=== PATIENT | male | born 1990 | race Caucasian/White ===

== ENCOUNTER 2023-05-16 14:04 | Outpatient (AMB) | payer BC, SELFPAY ==
--- NOTE | 2023-05-16 14:07 | MHC.PC.OV ---
Vital Signs 05/16/23 14:08 Height 6 ft Weight 193 lb 4 oz BMI 26.2 BP 134/82 Blood Pressure Location Lt brachial Position Sitting Pulse 86 Pulse Source Pulse Oximeter Pulse Oximetry (%) 99 Oxygen Delivery Method Room Air Intake Visit Reasons: est care/ IBS Pattern Hanger Required: No Accompanied by: Self / Same As Patient Allergies No Known Allergies Allergy (Verified 05/16/23 15:32) Medication List - Last Reconciled 05/16/23 by Shaq Dorsey MD dextroamphetamine-amphetamine 25 mg ER (Adderall XR) 25 mg PO BID Tobacco use date assessed: 05/16/23 Dental Screening Dental Screen Date: 05/16/23 Did you have a dental visit in the last 12 months?: Yes Did you have a dental problem in the last 6 months where you did not have access to dental care?: No Was dental information given to patient?: Patient has dentist HPI est care/ IBS HPI Details Patient comes in today to establish care - is a new patient to the practice States that he has not had a PCP since he was last with his inhalation therapy teacher when he was 15 y/o He is currently on Adderall XR that is being prescribed and managed by psychiatry Dr. Alvarez) in [place], [place] - states that he sees Dr. Alavrez via virtual visits every 3 months Relates (+) loose stools and frequent bowel movements daily, sometimes up to 6 to 7 episodes a day for the past 6 months or so; states that he's had occasional bouts of incontinence Is concerned that he may have IBS as he also notes (+) recurrent cramping pain in his stomach at times although these are not relieved even after he moves his bowels Patient denies any fever, headaches or dizziness Denies any chest pains, no SOB No nausea/vomiting and no change in bowel habits noted He denies any acute urinary symptoms PFSH Medical History (Updated 05/21/23 @ 02:04 by Shaq Dorsey MD) Overweight (BMI 25.0-29.9) Attention deficit disorder (ADD) Surgical History (Updated 05/16/23 @ 15:38 by Shaq Dorsey MD) S/P arthroscopy of right shoulder Hx of arthroscopic knee surgery Family History (Updated 05/16/23 @ 15:39 by Shaq Dorsey MD) Father Hemochromatosis Social History (Updated 05/16/23 @ 15:39 by Shaq Dorsey MD) Housing: House Alcohol intake: current Alcohol intake frequency: holidays/special occasions only Patient Tobacco Use Status: Never used Tobacco e-Cigarette/Vaping Use: Never Used service: No Current occupational status: employed Cognitive needs: No Hearing needs: No Vision needs: No Questionnaire PHQ-9 Over the last 2 weeks, how often have you been bothered by any of the following problems? 1. Little interest or pleasure in doing things: not at all 2. Feeling down, depressed, or hopeless: not at all 3. Trouble falling or staying asleep, or sleeping too much: not at all 4. Feeling tired or having little energy: not at all 5. Poor appetite or overeating: not at all 6. Feeling bad about yourself - or that you are a failure or have let yourself or your family down: not at all 7. Trouble concentrating on things, such as reading the newspaper or watching television: not at all 8. Moving or speaking so slowly that other people could have noticed. Or the opposite - being so fidgety or restless that you have been moving around a lot more than usual: not at all 9. Thoughts that you would be better off or of hurting yourself in some way: not at all Total score: 0 Depression Screening Interpretation: Negative Depression Screening Done: Yes 00294 - PHQ-9 Billing: Yes Source: Developed by Drs. Giles Vaz, Ioana Delgado, Sunny Cobian and colleagues, with an educational zahira from [employer]. Thrive Questionnaire Date Thrive assessed: 05/16/23 I am a: Patient What is your living situation today?: I have a steady place to live Within the past 12 months, did the food you bought not last and you didn't have the money to get more?: Never true Within the past 12 months, did you worry whether your food would run out before you got money to buy more?: Never true Do you have trouble paying for medicines?: No Do you have trouble getting transportation to medical appointments?: No Do you have trouble paying your heating and electricity bill?: No Do you have trouble taking care of your child, family member or friend?: No Do you have trouble with day-to-day activities such as bathing, preparing meals, shopping, managing finances, etc.?: No Are you currently unemployed and looking for a job?: No Are you interested in more education?: No Please select the resources that you would like help with: None Currently or been in a relationship where the following occur: no concerns reported AUDIT C Alcohol Use Questionnaire (AUDIT-C) 1. How often do you have a drink containing alcohol?: 2-4 times a month 2. How many drinks containing alcohol do you have on a typical day when you are drinking?: 3 or 4 3. How often do you have six or more drinks on one occasion?: Never Total Score: 3 Score Reviewed/Action Taken: Yes CASSIDY-7 AMB Questionnaire CASSIDY-7 Date CASSIDY - 7 assessed: 05/16/23 Feeling nervous, anxious, or on edge: 0 = Not at all Not being able to stop or control worryin = Not at all Worrying too much about different things: 0 = Not at all Trouble relaxin = Not at all Being so restless that it is hard to sit still: 0 = Not at all Becoming easily annoyed or irritable: 0 = Not at all Feeling afraid as if something awful might happen: 0 = Not at all Total CASSIDY-7 score (0-4 normal; 5-9 mild; 10-14 moderate; 15-21 severe): 0 Source: Developed by Drs. Giles Vaz, Ioana Delgado, Sunny Cobina and colleagues, with an educational zahira from [employer]. Review of Systems Const Denies chills, Denies fatigue, Denies fever(s), Denies headache(s), Denies malaise and Denies weakness Eyes Denies blurry vision, Denies change in vision, Denies irritation and Denies itchy eyes ENT Denies dysphagia, Denies dizziness, Denies otalgia, Denies headache(s), Denies nasal congestion, Denies neck pain, Denies odynophagia and Denies sore throat Card Denies chest pain, Denies rapid heart rate, Denies irregular heart rhythm, Denies palpitations and Denies dyspnea Resp Denies chest congestion, Denies cough, Denies dyspnea and Denies wheezing GI Reports abdominal pain (recurrent abdominal cramping), Denies bloating, Denies constipation, Denies dysphagia, Denies heartburn, Reports diarrhea (on and off), Reports loose stools (on and off), Denies nausea, Denies odynophagia and Denies vomiting Denies hematuria, Denies difficulty urinating, Denies dysuria, Denies urinary frequency and Denies urinary urgency Musc Denies back pain, Denies arthralgias, Denies joint swelling, Denies muscle weakness and Denies neck pain Skin/Breast Denies change in pigmentation, Denies lesions, Denies rash and Denies unusual bruising Neuro Denies dizziness, Denies headache(s), Denies paresthesias and Denies weakness Psych Denies anxiety, Denies depression and Reports difficulty concentrating (is currently on Rx for ADD) Endo Denies fatigue and Denies palpitations Aller/Immun Denies itchy eyes and Denies wheezing Physical exam (Primary Care) Vital Signs: Last Vital Signs Pulse 86 05/16/23 14:08 BP 134/82 05/16/23 14:08 Pulse Ox 99 05/16/23 14:08 Oxygen Delivery Method Room Air 05/16/23 14:08 BMI result Body Mass Index 26.2 Tobacco/Smoking Status: Tobacco use Status Tobacco use date assessed 05/16/23 05/16/23 14:14 Patient Tobacco Use Status Never used Tobacco 05/16/23 15:39 e-Cigarette/Vaping Use Never Used 05/16/23 15:39 PHQ-9: PHQ-9 Score PHQ-9: Total score 0 05/17/23 05:42 Depression Screening Interpretation: Negative Thrive Assessment: Date of Thrive Assessment Date Thrive assessed 05/16/23 05/16/23 14:14 Currently or been in a relationship where the following occur: no concerns reported Const General: no acute distress, alert and awake Orientation/consciousness: patient oriented x3 HENMT Head: Yes normocephalic and Yes atraumatic Ears: external ears normal, TM's normal bilaterally and EAC's normal General nose exam: No nasal discharge present Face and sinus: Yes normal facial exam and Yes sinuses nontender Teeth and gingiva: dentition normal Throat: Yes posterior oropharynx normal and Yes tonsils normal (no TP congestion) Eyes Eyelids: Yes eyelids normal Conjunctivae: conjunctivae normal Pupils: Equal, round and reactive pupils present EOM: EOMs intact bilaterally Neck Neck: Yes no lymphadenopathy and Yes supple Thyroid: Thyroid normal Resp Auscultation: clear to auscultation bilaterally, no rales and no wheezes Cardio Rate: regular rate Rhythm: regular rhythm Heart sounds: no murmurs GI Palpation (GI): Soft to palpation, nontender and No hepatosplenomegaly present Auscultation: normal bowel sounds General: Yes no CVA tenderness Back/Spine/Pelvis Back: no CVA tenderness Thoracic/Lumbar Spine: thoracic and lumbar spine normal to inspection Skin Lesions: no lesions Rashes: no rashes Neuro General: patient oriented x3, moves all extremities, no focal motor deficits and CN's II-XI intact bilaterally Cranial nerves: Yes Equal, round and reactive pupils present Cognition (Neuro): normal cognition Gait exam (Neuro): Normal gait present Extrem General: Yes no clubbing, cyanosis or edema Assessment and Plan Assessment & Plan (1) Annual physical exam: Code(s): Z00.00 - Encounter for general adult medical examination without abnormal findings Plan: Check labs (2) Intermittent diarrhea: Code(s): R19.7 - Diarrhea, unspecified Plan: Will send patient for some labs for further evaluation, including tests to screen/evaluate him for celiac disease (3) Abdominal cramping: Code(s): R10.9 - Unspecified abdominal pain Plan: He is advised that if his labs are unrevealing and if his symptoms persist, will consider referring him to GI for further evaluation and management (4) Attention deficit disorder (ADD): Code(s): F98.8 - Other specified behavioral and emotional disorders with onset usually occurring in childhood and adolescence Qualifiers: Hyperactivity presence: absent Qualified Code(s): F98.8 - Other specified behavioral and emotional disorders with onset usually occurring in childhood and adolescence Plan: Continue Adderall XR 25 mg BID Follow up with psychiatry as scheduled - is being seen by Dr. Alvarez out of [place], [place] via virtual visits (5) Overweight (BMI 25.0-29.9): Code(s): E66.3 - Overweight Plan: Discussed diet/exercise as tolerated/lose weight Plan Follow up in 4 months Orders: Orders Comprehensive Met. Panel 05/16/23 R10.9 - Unspecified abdominal pain, R19.7 - Diarrhea, unspecified, Z00.00 - Encounter for general adult medical examination without abnormal findings TSH reflex Free T4 05/16/23 R19.7 - Diarrhea, unspecified, Z00.00 - Encounter for general adult medical examination without abnormal findings UA CC w/rflx Micro + Cult 05/18/23 R30.0 - Dysuria, Z00.00 - Encounter for general adult medical examination without abnormal findings Vitamin D 25-OH Total 05/16/23 E55.9 - Vitamin D deficiency, unspecified, R19.7 - Diarrhea, unspecified, Z00.00 - Encounter for general adult medical examination without abnormal findings Endomysial IgA rflx Titer 05/16/23 R10.9 - Unspecified abdominal pain, R19.7 - Diarrhea, unspecified Immunoglobulin A 05/16/23 R10.9 - Unspecified abdominal pain, R19.7 - Diarrhea, unspecified Transferrin 05/16/23 Z83.49 - Family history of other endocrine, nutritional and metabolic diseases Complete Blood Count Auto Diff 05/16/23 I10 - Essential (primary) hypertension, R10.9 - Unspecified abdominal pain, R19.7 - Diarrhea, unspecified, Z00.00 - Encounter for general adult medical examination without abnormal findings Cholesterol 05/16/23 Z00.00 - Encounter for general adult medical examination without abnormal findings Vitamin B12 and Folate 05/16/23 E53.8 - Deficiency of other specified B group vitamins, R19.7 - Diarrhea, unspecified, Z00.00 - Encounter for general adult medical examination without abnormal findings Transglutaminase Ab IgG 05/16/23 R10.9 - Unspecified abdominal pain, R19.7 - Diarrhea, unspecified Ferritin 05/16/23 Z83.49 - Family history of other endocrine, nutritional and metabolic diseases Erythrocyte Sedimentation Rate 05/16/23 R10.9 - Unspecified abdominal pain, R19.7 - Diarrhea, unspecified Coding Level of Care Code Est Pt Prev Care 18-39y(91186) Diagnoses Annual physical exam Z00.00 Intermittent diarrhea R19.7 Abdominal cramping R10.9 Attention deficit disorder (ADD) without hyperactivity F98.8 Hyperactivity presence: absent Overweight (BMI 25.0-29.9) E66.3
[2023-05-16 14:08] VITALS: BP 134/82; PULSE 86; O2SAT 99; BMI 26.2
== END 2023-05-16 15:54 | disposition home or self-care (01) ==
PROVIDERS: PCP Physician Assistant; Visit Provider Internal Medicine
DX: Z00.00 Encounter for general adult medical examination without abnormal findings (principal); R19.7 Diarrhea, unspecified; R10.9 Unspecified abdominal pain; F98.8 Other specified behavioral and emotional disorders with onset usually occurring in childhood and adolescence; E66.3 Overweight
CPT/HCPCS: 99395

== ENCOUNTER 2023-05-16 16:05 | Outpatient (REF) | payer BC, SELFPAY ==
[2023-05-16 16:26] LABS: MANUAL DIFF FLAG NO
[2023-05-16 17:37] LABS: Basophils Percent Auto 0.5 % (0-2); Eosinophils Absolute Auto 0.2 X10*3/uL (0.0-0.4); Eosinophils Percent Auto 2.8 % (0-4); Hematocrit 45.6 % (42.0-52.0); Hemoglobin 15.6 g/dl (14.0-18.0); Imm Gran Abs Auto 0.02 X10*3/uL (0.00-0.03); Imm Gran Pct Auto 0.4 % (0.0-0.4); Lymphocytes Percent Auto 18.2 % (20-40); Mean Corpuscular HGB Conc 34.2 g/dl (31.0-36.0); Mean Corpuscular Hemoglobin 30.3 pg (27.0-33.0); Mean Corpuscular Volume 88.5 fL (80.0-98.0); Mean Platelet Volume 10.6 fL (9.4-12.4); Monocytes Absolute Auto 0.6 X10*3/uL (0.1-1.2); Monocytes Percent Auto 10.4 % (2-11); Neutrophils Absolute Auto 3.8 x10*3/uL (2.0-8.3); Neutrophils Percent Auto 67.7 % (45-73); Platelet Count 251 X10*3/uL (160-400); Red Blood Count 5.15 X10*6/uL (4.60-5.80); Red Cell Distribution Width 11.9 % (11.0-16.0); White Blood Count 5.7 X10*3/uL (4.8-10.8)
[2023-05-16 17:55] LABS: Alanine Aminotransferase 17 U/L (0-40); Albumin Level 4.9 g/dL (3.5-5.0); Alkaline Phosphatase 61 U/L (39-117); Anion Gap 15 (12-20); Aspartate Amino Transferase 19 U/L (5-37); Bilirubin Total 0.7 mg/dL (0.0-1.0); Blood Urea Nitrogen 10 mg/dL (9-16); Carbon Dioxide 29 mmol/L (22-29); Chloride 102 mmol/L (96-108); Cholesterol 167 mg/dL (<200); Estimated Glomerular Filt Rate > 60; Glucose Random 86 mg/dL (60-115); Potassium 3.6 mmol/L (3.3-5.1); Sodium 142 mmol/L (135-145); Total Protein 8.2 g/dL (6.5-8.0)
[2023-05-16 18:12] LABS: Ferritin 123 ng/mL (20-250); TSH reflex Free T4 0.71 uIU/mL (0.32-4.0); Vitamin D 25-OH Total 39.9 ng/mL (>30)
[2023-05-16 18:22] LABS: Folate 14.7 ng/mL (> or = 4.0); Vitamin B12 567 pg/mL (200-900)
[2023-05-16 18:34] LABS: Erythrocyte Sedimentation Rate 2 MM/HR (0-15)
[2023-05-18 16:59] LABS: Immunoglobulin A 239 mg/dL (47-310); Transferrin 267 mg/dL (188-341)
[2023-05-21 12:28] LABS: Endomysial IgA Antibody Negative (Negative)
[2023-05-23 07:38] LABS: Transglutaminase Ab IgG <1.0 U/mL
== END 2023-05-16 16:06 | disposition home or self-care (01) ==
LOC: HO.LAB 16:05
PROVIDERS: PCP Internal Medicine; Visit Provider Internal Medicine
DX: Z00.00 Encounter for general adult medical examination without abnormal findings (principal); R10.9 Unspecified abdominal pain; E55.9 Vitamin D deficiency, unspecified; E53.8 Deficiency of other specified B group vitamins; I10 Essential (primary) hypertension; Z83.49 Family history of other endocrine, nutritional and metabolic diseases; K52.9 Noninfective gastroenteritis and colitis, unspecified; R63.4 Abnormal weight loss; K90.0 Celiac disease
CPT/HCPCS: 36415; 80053; 82306; 82465; 82607; 82728; 82746; 82784; 84443; 84466; 85025; 85652; 86231; 86364

== ENCOUNTER 2023-05-18 08:29 | Outpatient (REF) | payer BC, SELFPAY ==
[2023-05-18 08:40] LABS: Appearance Urine Clear; Color Urine Yellow; Glucose Urine UA Negative (Negative); Leukocyte Esterase Urine Negative (Negative); Nitrite Urine Negative (Negative); PH 5.5 (5.0-9.0); Specific Gravity - Urine 1.025 (1.005-1.025); Urine Blood Negative (Negative); Urine Ketones Negative (Negative); Urine Protein Negative (Neg-Trace)
== END 2023-05-18 08:30 | disposition home or self-care (01) ==
LOC: HO.LNP 08:29
PROVIDERS: Visit Provider Internal Medicine
DX: Z00.00 Encounter for general adult medical examination without abnormal findings (principal); R30.0 Dysuria
CPT/HCPCS: 81003

== ENCOUNTER 2023-06-13 12:43 | Outpatient (AMB) | payer BC, SELFPAY ==
--- NOTE | 2023-06-13 12:47 | A.OFFVIS_ITS ---
Intake Vital Signs 06/13/23 12:48 Height 6 ft Weight 190 lb BMI 25.8 BP 120/72 Blood Pressure Location Lt brachial Position Sitting Pulse 92 Intake Visit Reasons: abdominal pain and diarrhea Intake Note: New consult for abdominal pain and diarrhea. Patient cc: bilateral abdominal pain with some bloating,and bloody diarrhea. Denies any other GI issues. Rn Utilization Management Um Required: No Accompanied by: Self / Same As Patient Allergies No Known Allergies Allergy (Verified 06/13/23 12:46) Medication List - Last Reconciled 06/13/23 by Eleni Ayala PA-C dextroamphetamine-amphetamine 25 mg ER (Adderall XR) 25 mg PO BID HPI HPI Comments History of Present Illness Details 33-year-old male referred with chronic d iarrhea and abdominal bloating For the past 6 months- he has been having about 15 loose, sand like stool-noting blood in the stool- seems bright red to dark red-belly cramping-no new new medications-no traveling-no sick contacts Appetite is good No cardiac or respiratory issues No nausea, vomiting, he hematemesis, 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 WBC, there is no anemia, celiac markers are negativ e, TSH is normal [facility] Medical History Overweight (BMI 25.0-29.9) Attention deficit disorder (ADD) Surgical History S/P arthroscopy of right shoulder Hx of arthroscopic knee surgery Family History Father Hemochromatosis Social History (Updated 06/13/23 @ 13:09 by Eleni Ayala PA-C) Household Members Other:: , 2 young children Housing: House Alcohol intake: current Alcohol intake frequency: holidays/special occasions only Patient Tobacco Use Status: Never used Tobacco e-Cigarette/Vaping Use: Never Used service: No Current occupational status: employed Cognitive needs: No Hearing needs: No Vision needs: No Review of Systems Const All systems reviewed & are unremarkable except as noted in HPI and below ENT Reports no additional complaints Card Denies chest pain and Denies dyspnea Resp Denies dyspnea GI Denies abdominal pain, Reports bloating, Reports hematochezia, Reports GI cramping, Reports heartburn and Reports diarrhea Musc Denies back pain Physical Exam Vital Signs: Last Vital Signs Pulse 92 06/13/23 12:48 BP 120/72 06/13/23 12:48 BMI result Body Mass Index 25.8 Const General: cooperative, healthy appearing, comfortable and no acute distress Orientation/consciousness: patient oriented x3 Limitations: no limitations Eyes Sclerae: sclerae normal Resp Effort & Inspection: normal respiratory effort and able to speak in complete sentences Auscultation: clear to auscultation bilaterally, no rales, no rhonchi and no wheezes Cardio Rate: regular rate Rhythm: regular rhythm Heart sounds: S1 normal heart sound present and S2 normal heart sound present GI Palpation (GI): Soft to palpation and nontender Auscultation: normal bowel sounds Skin General skin exam: no rashes or lesions noted Neuro General: patient oriented x3 Extrem General: Yes full ROM Psych Appearance: grossly normal and well kempt Mental Status: mental status grossly normal Speech and movement: Normal speech and movement present and Clear speech present Attitude: cooperative Thought process: Normal thought process present Thought content: Normal thought content present Insight: Good insight present (Psych) Judgement: Good judgement present (Psych) Results Reviewed Results Reviewed: Normal TSH Celiac markers negative Assessment & Plan Assessment & Plan (1) Abdominal cramping: Comment: Will likely need EGD colo rule IBD Code(s): R10.9 - Unspecified abdominal pain Plan: Will get stool studies, update blood work (2) Intermittent diarrhea: Comment: diarrhea seems more consistent, abdominal cramping blood noted intermit-BRBR Code(s): R19.7 - Diarrhea, unspecified Plan: EGD colo rule out IBD Plan stool Dicyclomine hydrocortisone Niraj phillip EGD/ colon Orders: Orders GI Panel 06/15/23 R19.7 - Diarrhea, unspecified Giardia Ag Stool EIA 06/15/23 R19.7 - Diarrhea, unspecified H pylori Ag Stool 06/15/23 A04.8 - Other specified bacterial intestinal infections Calprotectin, Fecal 06/15/23 R19.7 - Diarrhea, unspecified CDiff Gene PCR 06/15/23 R19.7 - Diarrhea, unspecified Medications: New dicyclomine 10 mg PO TID 30 days PRN 90 caps 0RF abdominal pain hydrocortisone 2.5% (Proctosol HC) 1 appl WA BEDTIME PRN 30 grams 3RF hemorrhoids Patient Instructions: stool studies rule out infectious cause Dicyclomine 10 mg-he will begin once daily may increases as prescribed if knee hydrocortisone cream EGD/ colon if stool studies are negative Discussed procedure, rare risks Coding Level of Care Code New Pt Level 4 (66308) Diagnoses Abdominal cramping R10.9 Intermittent diarrhea R19.7 Time Spent (min) 40
[2023-06-13 12:48] VITALS: BP 120/72; PULSE 92; BMI 25.8
== END 2023-06-13 14:43 | disposition home or self-care (01) ==
PROVIDERS: PCP Internal Medicine; Visit Provider Physician Assistant
DX: R10.9 Unspecified abdominal pain (principal); R19.7 Diarrhea, unspecified
CPT/HCPCS: 99204

== ENCOUNTER 2023-06-13 12:43 | Outpatient (REF) | payer BC, SELFPAY | END 2023-06-13 12:44 | disposition home or self-care (01) | LOC: HO.LAB 12:43 | PROVIDERS: PCP Internal Medicine; Visit Provider Physician Assistant | DX: Z13.89 Encounter for screening for other disorder (principal) ==

== ENCOUNTER 2023-06-15 08:55 | Outpatient (REF) | payer BC, SELFPAY ==
[2023-06-15 11:51] LABS: CDiff Gene PCR NEGATIVE (Negative)
[2023-06-15 12:48] LABS: Adenovirus F 40/41 Not Detected (Not Detect.); Astrovirus Not Detected (Not Detect.); Campylobacter Not Detected (Not Detect.); Cryptosporidium Not Detected (Not Detect.); Cyclospora cayetanensis Not Detected (Not Detect.); E. coli EAEC Not Detected (Not Detect.); E. coli EPEC Not Detected (Not Detect.); E. coli ETEC Not Detected (Not Detect.); E. coli STEC Not Detected (Not Detect.); Entamoeba histolytica Not Detected (Not Detect.); Giardia lamblia Not Detected (Not Detect.); Norovirus GI/GII Not Detected (Not Detect.); Plesiomonas shigelloides Not Detected (Not Detect.); Rotavirus A Not Detected (Not Detect.); Salmonella Not Detected (Not Detect.); Sapovirus Not Detected (Not Detect.); Shigella sp./EIEC Not Detected (Not Detect.); Vibrio Not Detected (Not Detect.); Vibrio Cholerae Not Detected (Not Detect.); Yersinia enterocolitica Not Detected (Not Detect.)
[2023-06-21 16:53] LABS: Calprotectin, Fecal 1080 mcg/g
== END 2023-06-15 08:56 | disposition home or self-care (01) ==
LOC: HO.LNP 08:55
PROVIDERS: Visit Provider Physician Assistant
DX: A04.8 Other specified bacterial intestinal infections (principal); R19.7 Diarrhea, unspecified
CPT/HCPCS: 83993; 87329; 87338; 87493; 87507

== ENCOUNTER 2023-07-06 11:28 | Day surgery (SDC) | payer BC, SELFPAY ==
--- NOTE | 2023-07-04 10:36 | P.CONAN_ITS ---
Documented by User: Shanta Driver NP 07/04/23 10:38 HPI - Anesthesia Eval Consult details Narrative: 33yo M for Upper Endoscopy and Colonoscopy [facility] Active Problems Active Problems: All Active Problems (Updated 06/19/23 @ 12:15 by Eleni Ayala PA-C) Overweight (BMI 25.0-29.9) (Acute) Abdominal cramping (Acute) Intermittent diarrhea (Acute) Annual physical exam (Acute) Attention deficit disorder (ADD) (Acute) Past Medical History Medical History Overweight (BMI 25.0-29.9) Attention deficit disorder (ADD) Family History Family History Father Hemochromatosis Surgical History Surgical History S/P arthroscopy of right shoulder Hx of arthroscopic knee surgery Social History Social History Household Members Other:: , 2 young children Housing: House Alcohol intake: current Alcohol intake frequency: holidays/special occasions only Patient Tobacco Use Status: Never used Tobacco e-Cigarette/Vaping Use: Never Used Are you DNR?: No Advance Directives: No Advance Directives Information Provided: Yes Recently lost weight without trying: No service: No Current occupational status: employed Cognitive needs: No Hearing needs: No Vision needs: No Meds Allergies Allergy/AdvReac Type Severity Reaction Status Date / Time No Known Allergies Allergy Verified 06/13/23 12:46 Home Medications Medication Instructions Recorded Confirmed Last Taken Type dextroamphetamine-amphetamine ER 25 mg PO BID 05/16/23 05/16/23 07/05/23 History 25 mg 24hr capsule,extend release (Adderall XR) Exam Pertinent Lab Results Pertinent Lab Results: Laboratory Tests 05/16/23 16:24 WBC 5.7 Hgb 15.6 Hct 45.6 Plt Count 251 Sodium 142 Potassium 3.6 Chloride 102 Carbon Dioxide 29 BUN 10 Creatinine 0.81 Assessment and Plan Assessment Anesthesia Assessment: Chart Reviewed Documented by User: Mary Whittington MD 07/06/23 13:39 PMFSH Past Medical History Medical History Overweight (BMI 25.0-29.9) Attention deficit disorder (ADD) Family History Family History Father Hemochromatosis Surgical History Surgical History S/P arthroscopy of right shoulder Hx of arthroscopic knee surgery History of Problems with Anesthesia: No Social History Social History Household Members Other:: , 2 young children Housing: House Alcohol intake: current Alcohol intake frequency: holidays/special occasions only Patient Tobacco Use Status: Never used Tobacco e-Cigarette/Vaping Use: Never Used Are you DNR?: No Advance Directives: No Advance Directives Information Provided: Yes Recently lost weight without trying: No service: No Current occupational status: employed Cognitive needs: No Hearing needs: No Vision needs: No Meds Allergies Allergy/AdvReac Type Severity Reaction Status Date / Time No Known Allergies Allergy Verified 06/13/23 12:46 Home Medications Medication Instructions Recorded Confirmed Last Taken Type dextroamphetamine-amphetamine ER 25 mg PO BID 05/16/23 05/16/23 07/05/23 History 25 mg 24hr capsule,extend release (Adderall XR) Exam Airway Mallampati Class: II TM Dist: >3cm Neck ROM: Full Loose/Missing/Broken Teeth: No Heart: RRR Lungs: CTA Assessment and Plan Assessment Anesthesia Assessment: Anesthesia Plan Discussed Final Anesthetic Review History of Problems with Anesthesia: No NPO: Yes ASA Class: II Final Preanesthetic Review: Meds/Allgs Chart Reviewed, Consent Obtained/Reviewed and Anes Risks/Benef Reviewed Patient Risk: Low Procedure Risk: Intermediate Anesthetic Plan Anesthetic Plan: MAC: Disposition: Standard PACU
--- NOTE | 2023-07-06 12:37 | MHC.SHP ---
Pre-Procedural Eval Section A Date of Service: 07/06/23 The patient is an INPATIENT: No Changes since office visit: Yes Patient answered all questions; No Cold of Flu in the past 2 weeks, No New Medical Problems and No Changes in Medication The History & Physical has been completed within 30 days and I have reviewed it.: Yes Section B Chief Complaint: Chronic diarrhea, abd pain, blood in the stool Allergies: Allergies Allergy/AdvReac Type Severity Reaction Status Date / Time No Known Allergies Allergy Verified 06/13/23 12:46 Plan Diagnosis/Plan: Unchanged I have reviewed the history and physical and performed a pertinent physical examination on my patient. No changes have occurred unless specified. Time Spent With Patient Time: Total time managing care of this patient today ____ minutes.
[2023-07-06 12:44] VITALS: BMI 25.0
[2023-07-06 12:46] VITALS: BP 120/80; PULSE 70; RESP 17; TEMP 36.2; O2SAT 99
[2023-07-06] MEDS: Lactated Ringers 1,000 ML 100 ML IVCONT (12:55)
--- NOTE | 2023-07-06 13:45 | P.OP_ITS ---
Operative Note Operative Note Date of Service: 07/06/23 Narrative: FLEXIBLE TRANSORAL UPPER GASTROINTESTINAL ENDOSCOPY WITH BIOPSIES AND COLONOSCOPY TILL CECUM WITH BIOPSIES, SNARE POLYPECTOMY, SUBMUCOSAL INJECTION AND HEMOCLIP PLACEMENT Pre-op diagnosis: Abdominal pain, chronic diarrhea, rectal bleeding Post-op diagnosis: Hiatal hernia, gastritis, colon polyps, diverticulosis, hemorrhoids, rectal mass? Endoscopist:? Nirali Bender MD Anesthesia:?MAC UPPER ENDOSCOPY Consent: Indications for the procedure and potential complications of bleeding, perforation, reaction to medications and missed diagnosis were discussed with the patient and informed consent was obtained. Instrument: Olympus GIF H 190 mid size upper endoscope Monitoring: Vital signs and clinical assessment, continuous EKG monitoring, Pulse oximetry, Carbon Dioxide monitoring and blood pressure monitoring were done throughout the procedure. Procedure: The patient was placed in the left lateral decubitis position and pre-procedure medications were administered and a bite block was placed. The endoscope was inserted into the mouth and advanced under direct vision to the third part of duodenum. A careful inspection was made as the upper endoscope was withdrawn including a retroflexed examination of the proximal stomach; Findings and interventions are described below. Findings: Larynx: Normal Esophagus: Ringed appearance of the distal esophagus - biopsies obtained to rule out EOE. GE junction at 36 cms, hiatal hernia 36 to 40 cms. No esophagitis or Kennedy's. Stomach: Moderate diffuse gastric erythema. Biopsies were obtained from the antrum and body of the stomach. Grade 3 flap valve on retroflexed examination of the cardia. Duodenum: Normal bulb and descending duodenum. Biopsies were obtained from 3rd part of the duodenum to check for celiac sprue Intervention: Biopsies as noted above COLONOSCOPY PROCEDURE NOTE Consent: Indications for the procedure and potential complications of bleeding, perforation, reaction to medications and missed diagnosis were discussed with the patient and informed consent was obtained. Instrument: Olympus CF H 190 L variable stiffness adult colonoscope Monitoring: Vital signs and clinical assessment, intermittent blood pressure monitoring, continuous EKG monitoring, Pulse oximetry and Carbon Dioxide monitoring were done throughout the procedure. Colon withdrawl time was 33 minutes. Procedure: The patient was placed in the left lateral decubitis position and pre-procedure medications were administered. After a digital rectal examination of the ano-rectum, the video colonoscope was inserted into the rectum and advanced through the colon to the cecum. The colonoscope was slowly withdrawn in a retrograde panoramic fashion and the colon mucosa was carefully examined including a retroflexed view of the rectum. Findings and interventions are described below. Procedure Difficulty: Colon was long and tortuous and there was some loop formation Findings: Terminal Ileum: Not evaluated Cecum: A 15 to 18 mm flat polyp -raised with 3 cc of Eleview and removed with a hot snare. Polypectomy site was closed with 1 hemoclip. Prominent ICV - biopsies obtained from the pospterior lip of the valve Ascending Colon: Normal Transverse Colon: Normal Descending Colon: Moderate diverticulosis Sigmoid Colon: Moderate diverticulosis Rectum: A large polypoidal, ulcerated and friable mass from 3 cms to 10 cms involving 90% of the circumference - multiple biopsies were obtained Ano-rectum: Moderate internal hemorrhoids Colon preparation: Good after copious irrigation Impression and Post Procedure Diagnosis: Endoscopy Findings: ESOPHAGUS: Ringed appearance of the distal esophagus - biopsies obtained to rule out EOE. GE junction at 36 cms, hiatal hernia 36 to 40 cms. No esophagitis or Kennedy's. STOMACH: Moderate diffuse gastritis DUODENUM: Normal - biopsied to check for celiac sprue Colonoscopy Findings: One medium sized polyp removed A large polypoidal, ulcerated and friable mass from 3 cms to 10 cms involving 90% of the circumeference - multiple biopsies were obtained Random biopsies were obtained from the right and left colon. Moderate diverticulosis seen in the left colon Moderate hemorrhoids on antegrade exam. Plan: Await pathology results Pt will be scheduled for a Chest, abdomen and Pelvic CT scan and referred urgently to Oncology Patient has an appointment on 07/26/23 in the GI Clinic with AMARIS Carlson. Repeat Colonoscopy depending on results of above testing Above findings were reviewed with the patient and his and colon polyps handout was given in the discharge area 07/09/23 Preliminary path results showing rectal adenocarcinoma path results reviewed with the patient. Labs and urgent chest, abdomen and pelvic CT ordered. Pt will be referred to Oncology after above. ADDENDUM: BIOPSIES SHOWED: A. Small bowel, biopsy: Duodenal mucosa within normal limits; negative for celiac disease. B. Stomach, antrum, biopsy: Antral-type mucosa with mild chronic inactive inflammation; no Helicobacter organisms seen. C. Stomach, body, biopsy: Oxyntic mucosa with mild chronic inactive inflammation; no Helicobacter organisms seen. D. Esophagus, distal, biopsy: Active esophagitis (maximum eosinophil count 5 per high powered field). E. Cecum, polypectomy: Fragments of sessile serrated lesion/polyp; negative for cytologic dysplasia. F. Ileocecal valve, biopsy: Colonic mucosa within normal limits. G. Colon, right, biopsy: Colonic mucosa within normal limits; negative for microscopic colitis. H. Colon, left, biopsy: Colonic mucosa within normal limits; negative for microscopic colitis. I. Rectum, mass, biopsy: Superficial fragments of adenocarcinoma. COMMENT: MSI studies on the tumor will be addended CHEST, ABD AND PELVIC CT SCAN SHOWED: * Chest: Bilateral upper lobe groundglass attenuation nodules. Chest CT follow-up as per protocol. * Abdomen and pelvis: Stool throughout the colon suggestive of constipation. Question wall thickening of the inferior rectum/anus. Question surgical clip adjacent to the lateral wall of the cecum. No cecal wall thickening or mass seen. Question wall thickening of the proximal horizontal portion of the duodenum. * 7 mm low-attenuation lesion high in the dome of the right lobe of the liver. Follow-up liver MRI should be considered. Upper normal-size spleen. Above results reviewed with the patient and his , Willa. Pt's is arranging for the patient to be seen at [facility] next week Pelvic and hepatic MRI and Rectal EUS can be scheduled in [place] through his Oncologist.
[2023-07-06 14:55] VITALS: BP 108/71; PULSE 94; RESP 16; TEMP 36.4; O2SAT 95
[2023-07-06 15:10] VITALS: BP 115/78; PULSE 77; RESP 20; TEMP 36.3; O2SAT 98
[2023-07-06 15:25] VITALS: BP 111/70; PULSE 85; RESP 20; TEMP 36.3; O2SAT 100
--- NOTE | 2023-07-06 17:03 | PC.NURSE ---
Resolution clip card left behind in PACU. Images of front and back of card sent to pt by the nurse discharging the patient. Card put into outgoing mail with instructions to keep in wallet and to present it whenever having procedures involving magnetic imaging (MRI)
== END 2023-07-06 16:10 | disposition home or self-care (01) ==
PROVIDERS: PCP Internal Medicine; Visit Provider Internal Medicine Gastroenterology
PROC: (CPT 43239; principal; 2023-07-06 13:30)
DX: K29.70 Gastritis, unspecified, without bleeding (principal); K20.80 Other esophagitis without bleeding; K44.9 Diaphragmatic hernia without obstruction or gangrene; C20 Malignant neoplasm of rectum; D12.0 Benign neoplasm of cecum; K57.30 Diverticulosis of large intestine without perforation or abscess without bleeding; K64.8 Other hemorrhoids; Q43.8 Other specified congenital malformations of intestine
CPT/HCPCS: 43239; 45385; 45381; 45380; 88305; 88341; 88342; J2250; J2704

== ENCOUNTER → 2023-07-06 11:28 | Outpatient (BNV) | payer BC, SELFPAY | PROVIDERS: PCP Internal Medicine; Visit Provider Internal Medicine Gastroenterology | DX: K29.70 Gastritis, unspecified, without bleeding (principal); K52.9 Noninfective gastroenteritis and colitis, unspecified; K62.5 Hemorrhage of anus and rectum; K63.5 Polyp of colon; C20 Malignant neoplasm of rectum | CPT/HCPCS: 43239; 45380; 45381; 45385 ==

== ENCOUNTER 2023-07-11 12:07 | Outpatient (REF) | payer BC, SELFPAY ==
--- NOTE | ~2023-07-11 | CT_ITS ---
EXAMINATION: CT CHEST, ABDOMEN AND PELVIS WITH CONTRAST CLINICAL INFORMATION: Staging COMPARISON: None TECHNIQUE: Multidetector volumetric imaging was performed of the chest, abdomen and pelvis following administration of 85 mL Omnipaque 300 intravenous contrast. Oral contrast was administered. Sagittal and coronal reformatted images were obtained on the technologist's workstation. This CT examination was performed using dose optimization techniques as appropriate, variously including the following: *Automated exposure control *Adjustment of mA and/or kV according to patient size (this includes techniques or standardized protocols for targeted exams where dose is matched to indication/reason for exam; i.e. extremities or head) *Use of iterative reconstruction technique DLP: 430 mGy-cm FINDINGS: CHEST: LUNGS: 6 mm groundglass attenuation right apical nodule axial image 75 series 5. Faint increased attenuation in the peripheral left upper lobe measuring 1.7 cm and adjacent pleural thickening for example axial image 140 series 5. Right pleural thickening in the apical posterior segment of the left upper lobe adjacent to the fissure axial image 126 series 5 the lungs are otherwise clear. PLEURA: No pleural effusion. MEDIASTINUM: No cardiomegaly. Aorta and pulmonary artery are normal in caliber. No mediastinal lymphadenopathy. No hilar lymphadenopathy. The esophagus is unremarkable. CORONARY ARTERY CALCIFICATION: No coronary artery calcification appreciated. CHEST WALL/AXILLA: No axillary or internal mammary lymphadenopathy. ABDOMEN AND PELVIS: ABDOMINAL AND PELVIC WALL: Unremarkable. LIVER AND BILIARY TREE: 7 mm low-attenuation lesion high dome of the right lobe of the liver axial image 13. 3 mm low-attenuation lesion in the posterior segment of the right lobe axial image 16. 6 mm low-attenuation area in the posterior segment of the right lobe near the right kidney. This is not seen on sagittal and coronal reconstructed images and probably represents partial volume averaging with the adjacent fat. Normal gallbladder. No biliary duct dilatation. PANCREAS: Unremarkable. SPLEEN: Upper normal-size measuring 13.6 cm in length. ADRENAL GLANDS: Unremarkable. KIDNEYS AND URETERS: Unremarkable. GASTROINTESTINAL TRACT: Stool throughout the colon. High attenuation foreign body adjacent to the lateral wall of the cecum questionable for surgical clip. No associated wall thickening or mass. There is question of wall thickening and enhancement of the inferior rectum or anus example axial image 83 and 84 series 3. There is question of wall thickening of the duodenum adjacent to the head of the pancreas, proximal horizontal portion, for example axial image 41 series 3. Small and large bowel is otherwise normal. Stomach is normal. Appendix is normal. VASCULAR: Unremarkable. LYMPH NODES: No lymphadenopathy. FREE FLUID: No free fluid. BLADDER: Unremarkable. PELVIC VISCERA: Unremarkable. OSSEOUS STRUCTURES: Mild 3 mm retrolisthesis of L5 with respect to L4 and S1. There is a bilateral L4 pars defect. CT/CT abdomen pelvis w IV con IMPRESSION: * Chest: Bilateral upper lobe groundglass attenuation nodules. Chest CT follow-up as per protocol. * Abdomen and pelvis: Stool throughout the colon suggestive of constipation. Question wall thickening of the inferior rectum/anus. Question surgical clip adjacent to the lateral wall of the cecum. No cecal wall thickening or mass seen. Question wall thickening of the proximal horizontal portion of the duodenum. * 7 mm low-attenuation lesion high in the dome of the right lobe of the liver. Follow-up liver MRI should be considered. Upper normal-size spleen.
[2023-07-11 11:27] LABS: Hematocrit 42.9 % (42.0-52.0); Hemoglobin 14.9 g/dl (14.0-18.0); Mean Corpuscular HGB Conc 34.7 g/dl (31.0-36.0); Mean Corpuscular Volume 86.5 fL (80.0-98.0); Mean Platelet Volume 9.6 fL (9.4-12.4); Platelet Count 254 X10*3/uL (160-400); Red Blood Count 4.96 X10*6/uL (4.60-5.80); Red Cell Distribution Width 11.5 % (11.0-16.0); White Blood Count 4.9 X10*3/uL (4.8-10.8)
[2023-07-11 11:48] LABS: Blood Urea Nitrogen 13 mg/dL (9-16); Estimated Glomerular Filt Rate > 60
[2023-07-11] MEDS: Barium Sulfate Oral (Berry) 450 ML ORAL.SUSP 900 ML PO (14:18)
[2023-07-11] MEDS: iohexoL 350 MG/ML 75 ML INFUS..BTL 85 ML IV (14:19)
== END 2023-07-11 12:08 | disposition home or self-care (01) ==
LOC: HO.CT 12:07
PROVIDERS: PCP Internal Medicine; Visit Provider Internal Medicine Gastroenterology
DX: K62.89 Other specified diseases of anus and rectum (principal)
CPT/HCPCS: 36415; 71260; 74177; 82378; 82565; 84520; 85027; Q9967

== ENCOUNTER 2023-07-17 12:46 | Outpatient (REF) | payer BC, SELFPAY ==
--- NOTE | ~2023-07-17 | MR_ITS ---
EXAMINATION: MRI ABDOMEN WITH AND WITHOUT CONTRAST CLINICAL INFORMATION: Rectal cancer. Follow-up liver lesion seen on CT scan. COMPARISON: Directly compared to the 07/11/2023 CT scan TECHNIQUE: Multiple routine MRI sequences through the abdomen were obtained on a high-field 1.5Tesla MRI. Pre-and postcontrast images with 10 mL of Gadavist intravenous contrast were obtained. This included a dynamic contrast-enhanced technique. FINDINGS: Lung bases: The visualized lung bases are unremarkable. Liver: The liver parenchyma is normal in size, shape, and signal. Along the posterior subcapsular dome of segment 7 of the liver there is a homogeneous T2 bright 1.1 cm slow peripheral nodular enhancing hemangioma. This corresponds with one of the abnormality seen on the CT scan. There is additionally a tiny T2 bright nonenhancing 0.6 cm cyst in posterior segment 7 as well. No new or suspicious focal hepatic lesions seen. Specifically no suspicious arterial phase enhancing lesions or suspicious washout of contrast on later phases. No biliary ductal dilatation. Gallbladder: Gallbladder is unremarkable. No suspicious gallstones or filling defects. No gallbladder wall thickening or pericholecystic inflammatory changes. Pancreas: Pancreas is homogeneous in signal. No pancreatic ductal dilatation or obstruction. No peripancreatic inflammatory changes or fluid. Spleen: Prominent measuring 13.4 cm in length. Adrenals: Unremarkable Kidneys: Kidneys are normal in size, shape, and signal. No suspicious renal mass lesion seen. No hydronephrosis or perinephric edema. Other: None MR/MR abdomen wo/w con IMPRESSION: Incidental 1.1 cm hemangioma in the posterior subcapsular dome of the liver corresponding with the abnormality seen on the prior CT scan. Additional tiny hepatic cyst. No suspicious hepatic lesions seen.
[2023-07-17] MEDS: gadobutroL 10 ML VIAL IVPUSH (13:50)
== END 2023-07-17 12:47 | disposition home or self-care (01) ==
LOC: HO.MRI 12:46
PROVIDERS: PCP Internal Medicine; Visit Provider Internal Medicine Gastroenterology
DX: C20 Malignant neoplasm of rectum (principal)
CPT/HCPCS: 74183; A9585